=== PATIENT | male | born 1950 | race Caucasian/White ===

== ENCOUNTER 2017-04-20 13:41 | Emergency (ER) | payer OTHER ==
[~2017-04-20] VITALS: Ht 180.3 cm; Wt 72.1 kg
[~2017-04-20 13:41] MED LIST: MORP60TE50 PO
[2017-04-20 13:47] VITALS: BP 143/85
--- NOTE | 2017-04-20 15:02 | NUR ---
PT AMBULATED TO ER BED 05.
--- NOTE | 2017-04-20 15:20 | NUR ---
66/M PRESENT TO ER C/O POSSIBLE BUG BITE ON LEFT CALF x 1 WEEK. DENIES N/V/D; SKIN IS PINK/WARM/DRY; AAOX4 WITH EVEN AND STEADY GAIT; LUNGS CLEAR BL; HR EVEN AND REGULAR; PT DENIES ANY FEVER, CP, SOB, OR COUGH AT THIS TIME; PATIENT STATES PAIN OF 8/10 AT THIS TIME; VSS; PATIENT POSITIONED FOR COMFORT; HOB ELEVATED; BEDRAILS UP X2; BED DOWN. ER MD MADE AWARE OF PT STATUS.
--- NOTE | 2017-04-20 15:40 | NUR ---
Dr. Ku evaluating patient at bedside.
[2017-04-20] MEDS ORDERED: LIDOCAINE 1% 500 MG/50 ML VIAL INJ ONE (15:45)
--- NOTE | 2017-04-20 16:57 | NUR ---
Patient discharged with v/s stable. Written and verbal after care instructions given and explained. Patient alert, oriented and verbalized understanding of instructions. Ambulatory with steady gait. All questions addressed prior to discharge. ID band removed. Patient advised to follow up with PMD. Rx of MOTRIN 800MG, NORCO 5/325MG TAB, BACTRIM DS 800-160MG AND KEFLEX 500CAPSULE given. Patient educated on indication of medication including possible reaction and side effects. Opportunity to ask questions provided and answered.
[2017-04-20 16:59] VITALS: BP 125/72
== END 2017-04-20 16:57 | disposition home or self-care (01) ==
LOC: MED 13:41
DX: L02.416 Cutaneous abscess of left lower limb (principal); L03.116 Cellulitis of left lower limb; F17.200 Nicotine dependence, unspecified, uncomplicated
CPT/HCPCS: 10061; 99284; J2001

== ENCOUNTER 2017-04-25 13:06 | Emergency (ER) | payer OTHER ==
[~2017-04-25] VITALS: Ht 177.8 cm; Wt 71.2 kg
[2017-04-25 13:37] VITALS: BP 119/68
--- NOTE | 2017-04-25 18:12 | NUR ---
Dr. De Dios evaluating patient.
--- NOTE | 2017-04-25 18:12 | NUR ---
Patient to OF.
--- NOTE | 2017-04-25 18:15 | NUR ---
PT RETURNING FOR A WOUND CHECK---ABSCESS I&D 04/20/2017;LEFT CALF WOUND--DRESSING REMAINS INTACT;HX---, CHRONIC BACK PAIN, OSTEOMYLITIS;RX-MORPHINE, TRAMAZAPAM. DENIES N/V/D; SKIN IS PINK/WARM/DRY; AAOX4 WITH EVEN AND STEADY GAIT; LUNGS CLEAR BL; HR EVEN AND REGULAR; PT DENIES ANY FEVER, CP, SOB, OR COUGH AT THIS TIME; PATIENT STATES PAIN OF 6/10 AT THIS TIME;PATIENT POSITIONED FOR COMFORT; HOB ELEVATED; BEDRAILS UP X2; BED DOWN.
[2017-04-25 18:30] VITALS: BP 76/68
[2017-04-25] MEDS ORDERED: NEOMYCIN/POLYMYXIN/BACITRACIN 0.9 GM/1 PKT TP ONE (18:30)
--- NOTE | 2017-04-25 18:30 | NUR ---
Patient discharged with v/s stable. Written and verbal after care instructions given and explained. Patient verbalized understanding. Ambulatory with steady gait. All questions addressed prior to discharge. Advised to follow up with PMD.
== END 2017-04-25 18:30 | disposition home or self-care (01) ==
LOC: MED 13:06
DX: Z48.01 Encounter for change or removal of surgical wound dressing (principal)
CPT/HCPCS: 99283

== ENCOUNTER 2019-02-02 04:20 | Emergency (ER) | payer OTHER ==
[~2019-02-02] VITALS: Ht 180.3 cm; Wt 83.9 kg
--- NOTE | 2019-02-02 04:20 | NUR ---
PT [place] [employer], PREBOOK. TAKEN TO BED 11
--- NOTE | 2019-02-02 04:25 | NUR ---
PT TO ED [facility] FOR PREBOOK. ON ARRIVAL PT APPEARS DROWSY AND AMBULATING WITH ASSIST FROM PD. PER PT HE STATED "I USED HEROIN LAST NIGHT AT 2330". ORDER FOR 0.4 NARCAN IM RECIEVED BY DR BENÍTEZ.
[2019-02-02 04:28] VITALS: BP 133/64
--- NOTE | 2019-02-02 04:28 | NUR ---
Dr. Padilla evaluating patient at bedside.
[2019-02-02] MEDS ORDERED: NALOXONE 0.4 MG/ML VIAL IM ONE (04:35)
--- NOTE | 2019-02-02 04:35 | NUR ---
PT APPEARS ALERT AND ABLE TO RESPOND TO QUESTIONS APPROPRIATLEY. PER ER MD BENÍTEZ, PT IS OK TO DISCHARGE.
--- NOTE | 2019-02-02 04:48 | NUR ---
PATIENT BIB [facility] [employer]. PATIENT EXAMINED BY DR. BENÍTEZ. PATIENT MEDICALLY CLEARED AND RELEASED IN CUSTODY IN STABLE CONDITION. ORIGINAL PRE-BOOK FORM GIVEN TO OFFICER RAMIREZ PA[employer]OR.
--- NOTE | 2019-02-02 04:49 | NUR ---
Patient discharged with v/s stable. Written and verbal after care instructions given and explained. Patient verbalized understanding. Police with in custody. All questions addressed prior to discharge. Advised to follow up with PMD.
[2019-02-02 04:54] VITALS: BP 135/61
== END 2019-02-02 04:49 ==
LOC: MED 04:20
DX: T40.1X1A Poisoning by heroin, accidental (unintentional), initial encounter (principal); T43.621A Poisoning by amphetamines, accidental (unintentional), initial encounter; F17.210 Nicotine dependence, cigarettes, uncomplicated; Z79.899 Other long term (current) drug therapy; Z02.89 Encounter for other administrative examinations; Y92.89 Other specified places as the place of occurrence of the external cause
CPT/HCPCS: 96372; 99283; J2310

== ENCOUNTER 2019-07-30 20:36 | Emergency (ER) | payer OTHER ==
[~2019-07-30] VITALS: Ht 180.3 cm; Wt 79.4 kg
--- NOTE | 2019-07-30 20:36 | NUR ---
PT BIBA BLS TO ER BED 02
[2019-07-30 20:37] VITALS: BP 142/89
--- NOTE | 2019-07-30 20:37 | NUR ---
BROUGHT IN BY AMBULANCE FOR ALOC,POSSIBLE ETOH INTOXICATION. DENIES ETOH USE. PLACED IN BED 2,CHANGED INTO A GOWN AND HOOKED TO THE MONITOR.
--- NOTE | 2019-07-30 20:57 | NUR ---
FINGERSTICK BLOOD SUGAR CHECK=77. COLLEEN MADE AWARE.
--- NOTE | 2019-07-30 21:00 | NUR ---
ER-MD CAME BY BEDSIDE TO EVALUATE PT.
--- NOTE | 2019-07-30 21:11 | NUR ---
CRANBERRY JUICE GIVEN FOR BLOOD SUGAR=77. SANDWICH ORDERED FOR PT.
--- NOTE | 2019-07-30 21:22 | NUR ---
URINE SPECIMEN COLLECTED.
--- NOTE | 2019-07-30 21:34 | NUR ---
12 LEAD EEKG DONE BY EMT, REPORT SHOWN TO . LAB.TECH.ALSO AT BEDSIDE DRAWING BLOOD.URINE SPECIMEN HANDED OVER TO TECH.
[2019-07-30 21:58] LABS: ANION GAP 15.6 (8-16); CARBON DIOXIDE 26.3 mmol/L (21-32); CREATININE 1.1 mg/dL (0.7-1.3); POTASSIUM 3.9 mmol/L (3.5-5.1)
[2019-07-30 22:00] LABS: BASOPHILS # (AUTO) 0.1 K/uL (0.00-0.22); EOSINOPHILS # (AUTO) 0.3 K/uL (0-0.4); HEMATOCRIT 46.3 % (36-52); HEMOGLOBIN 15.3 g/dL (12.0-18.0); LYMPHOCYTES # (AUTO) 1.5 K/uL (2.0-11.5); LYMPHOCYTES % (AUTO) 26.9 % (20.5-51.1); MEAN CORPUSCULAR HEMOGLOBIN 29 pg (27-31); MEAN CORPUSCULAR HGB CONC 33 g/dL (33-37); MEAN CORPUSCULAR VOLUME 88.4 fL (80-94); MONOCYTES # (AUTO) 0.4 K/uL (0.8-1.0); MONOCYTES % (AUTO) 7.7 % (1.7-9.3); NEUTROPHILS # (AUTO) 3.2 K/uL (1.8-7.7); NEUTROPHILS % (AUTO) 58.4 % (42.2-75.2); PLATELET COUNT (AUTO) 173 K/uL (140-450); RED BLOOD CELL COUNT(AUTO) 5.24 MIL/uL (4.20-6.10); RED CELL DISTRIBUTION WIDTH 15.3 % (11.6-13.7); WHITE BLOOD COUNT (AUTO) 5.4 K/uL (4.8-10.8)
[2019-07-30 22:03] LABS: BARBITURATE, URINE NEG. ng/ml (NEG <=200); BENZODIAZEPINE, URINE NEG. ng/mL (NEG <=200); CANNABINOID, URINE POS. ng/mL (NEG <=50); COCAINE, URINE NEG. ng/mL (NEG <=300); OPIATE, URINE POS. ng/mL (NEG <=2000); PHENCYCLIDINE SCREEN,URINE NEG. ng/mL (NEG <=25)
--- NOTE | 2019-07-30 22:03 | NUR ---
WENT FOR CT SCAN OF HEAD VIA [facility].
[2019-07-30 22:04] LABS: ALBUMIN 3.7 g/dL (3.4-5.0); TOTAL BILIRUBIN 0.6 mg/dL (0.0-1.0)
--- NOTE | 2019-07-30 22:11 | NUR ---
BACK FROM CT SCAN.
--- NOTE | 2019-07-30 22:58 | NUR ---
REPEAT BLOOD GLUCOSE CHECK=86 AFTER 8 OZ OF CRANBERRY JUICE. SANDWICH PROVIDED BUT PT.TOO SEDATED TO EAT. WILL NOTIFY
--- NOTE | 2019-07-31 01:00 | NUR ---
ASLEEP, NOT IN ANY KIND OF DISTRESS. NO PAIN OR DISCOMFORT NOTED. VS REMAIN STABLE.
--- NOTE | 2019-07-31 04:15 | NUR ---
PT. ABLE TO AMBULATE WITHOUT PROBLEM. ER-MD MADE AWARE. PT.REMAINS STABLE AND PAIN FREE.
--- NOTE | 2019-07-31 05:23 | NUR ---
FINGERSTICK BLOOD SUGAR GPXHV=169. ER-MD MADE AWARE. DISCHARGED STABLE. COPY OF LABS,VERBAL AND WRITTEN AFTERCARE INSTRUCTIONS GIVEN. VERBALIZED UNDERSTANDING.
[2019-07-31 05:33] VITALS: BP 162/91
== END 2019-07-31 05:23 | disposition home or self-care (01) ==
LOC: MED 20:36
DX: F10.129 Alcohol abuse with intoxication, unspecified (principal); R42 Dizziness and giddiness; M25.569 Pain in unspecified knee; Z79.899 Other long term (current) drug therapy
CPT/HCPCS: 36415; 70450; 80053; 80305; 82948; 85025; 93005; 99284; G0482